=== PATIENT | female | born 1965 | race Caucasian/White ===

== ENCOUNTER 2016-12-08 16:53 | Emergency (ER) | payer OTHER ==
[2016-12-08 17:04] VITALS: RESP 20
--- NOTE | 2016-12-08 17:23 | ED ---
General Adult HPI - General Chief complaint: Abdominal Pain Stated complaint: Stomach swollen/kidney pain Time Seen by Provider: 12/08/16 17:07 Source: patient, RN notes reviewed Mode of arrival: ambulatory Limitations: no limitations - History of Present Illness Initial comments: This is a 51-year-old female who presents with abdominal distention 3 days. Patient states this has gradually gotten worse over the 3 days. Patient admits to some mild nausea but denies any vomiting. Patient states she has chronic diarrhea from IBS but this has not been worse. Patient states her last bowel movement was this morning and it was loose stool. Patient denies any hematochezia, hematuria, dysuria. Patient states she is having some bilateral lower back pain and thinks this is pain from her "kidneys". Patient states this has never happened to her before. Patient states she has a history of cholecystectomy and appendectomy. Patient states she's also had a partial hysterectomy but states her ovaries are still present. Patient states there is no pain unless she pushes on the abdomen. Patient denies any recent fever, chills, shortness breath, chest pain, numbness, tingling, hematuria, headache, or visual changes, or any other complaints. - Related Data Home Medications Medication Instructions Recorded Confirmed Albuterol Inhaler [Ventolin Hfa 2 puff INHALATION RT-BID PRN 12/08/16 12/08/16 Inhaler] HYDROcodone/APAP 10-325MG [[place] 0.5 tab PO BID PRN 12/08/16 12/08/16 10-325] Ibuprofen [Motrin] 800 mg PO TID PRN 12/08/16 12/08/16 Lisdexamfetamine Dimesylate 30 mg PO QAM 12/08/16 12/08/16 [Vyvanse] Previous Rx's Medication Instructions Recorded Dicyclomine [Bentyl] 20 mg PO QID 3 Days 12/08/16 Allergies Allergy/AdvReac Type Severity Reaction Status Date / Time cefaclor [From Ceclor] Allergy Unknown Verified 12/08/16 18:21 erythromycin base Allergy Unknown Verified 12/08/16 18:21 Penicillins Allergy Unknown Verified 12/08/16 18:21 sulfamethoxazole Allergy Unknown Verified 12/08/16 18:21 [From Bactrim] trimethoprim [From Bactrim] Allergy Unknown Verified 12/08/16 18:21 Review of Systems ROS Statement: Those systems with pertinent positive or pertinent negative responses have been documented in the HPI. ROS Other: All systems not noted in ROS Statement are negative. Past Medical History Past Medical History: Fibromyalgia Additional Past Medical History / Comment(s): herniated discs, migraines, goiter History of Any Multi-Drug Resistant Organisms: None Reported Past Psychological History: No Psychological Hx Reported Smoking Status: Current every day smoker Past Alcohol Use History: None Reported Past Drug Use History: None Reported General Exam - General Exam Comments Initial Comments: General: The patient is awake and alert, in no distress, and does not appear acutely ill. Eye: Pupils are equal, round and reactive to light, extra-ocular movements are intact. No nystagmus. There is normal conjunctiva bilaterally. No signs of icterus. Ears: TMs pink and pearly with intact cone of light bilaterally. Normal external ear canals Nose: Nasal turbinates pink and moist Mouth and throat: There are moist mucous membranes and no oral lesions. Neck: The neck is supple, there is no tenderness or JVD. Cardiovascular: There is a regular rate and rhythm. No murmur, rub or gallop is appreciated. Respiratory: Lungs are clear to auscultation, respirations are non-labored, breath sounds are equal. No wheezes, stridor, rales, or rhonchi. Gastrointestinal: Generalized tenderness to palpation of the abdomen, abdomen is mildly distended. Bilateral CVA tenderness with left worse than right. Abdomen is soft, abdomen without masses or organomegaly noted. There is no rebound or guarding present. Bowel sounds are unremarkable. Musculoskeletal: Normal ROM, no tenderness. Strength 5/5. Sensation intact. Radial pulses equal bilaterally 2+. Neurological: A&O x 3. CN II-XII intact, There are no obvious motor or sensory deficits. Coordination appears grossly intact. Speech is normal. Skin: Skin is warm and dry and no rashes or lesions are noted. Psychiatric: Cooperative, appropriate mood & affect, normal judgment. Limitations: no limitations Course Vital Signs 12/08/16 12/08/16 17:02 20:07 Temperature 97.8 F 98.1 F Pulse Rate 88 78 Respiratory 20 20 Rate Blood Pressure 176/84 140/85 O2 Sat by Pulse 98 97 Oximetry Medical Decision Making - Medical Decision Making This is a 50-year-old female who presents with bloating 3 days. On physical exam patient is well-appearing and afebrile. Generalized tenderness to palpation of the abdomen, abdomen is mildly distended. Bilateral CVA tenderness with left worse than right. Abdomen is soft, abdomen without masses or organomegaly noted. There is no rebound or guarding present. Bowel sounds are unremarkable. A KUB is done and reviewed showing: Nonacute abdomen. Report per Dr. Paul. Basic labs were drawn and reviewed. A UA was done. Urine culture is pending. Due to flank pain and hematuria found on UA a CT abdomen pelvis without contrast is done and reviewed showing: Gastric diverticulum. No evidence of renal stone or obstruction. No sign of acute abdomen and pelvis. Small left adrenal nodule of doubtful significance. Report by Dr. Paul. Discussed the results with patient. Discussed that patient should follow-up with her PCP in the next 1-2 days and have a repeat urinalysis done in 7-10 days to monitor for persistent hematuria. I discussed Bentyl along with Tylenol and Motrin for any pain bloating. I discussed return parameters.Discussed that patient should follow up with PCP in one to 2 days or return to the [facility] for any worsening symptoms or for any further concerns. Patient was receptive to this plan and patient will be discharged home. I discussed this case with attending physician Dr. Patton who agrees the plan as stated above. - Lab Data Result diagrams: 12/08/16 17:32 12/08/16 17:32 Lab Results 12/08/16 12/08/16 12/08/16 Range/Units 17:32 17:32 17:32 WBC 9.9 (3.8-10.6) k/uL RBC 4.61 (3.80-5.40) m/uL Hgb 14.0 (11.4-16.0) gm/dL Hct 42.1 (34.0-46.0) % MCV 91.3 (80.0-100.0) fL MCH 30.4 (25.0-35.0) pg MCHC 33.3 (31.0-37.0) g/dL RDW 14.5 (11.5-15.5) % Plt Count 216 (150-450) k/uL Neutrophils % 66 % Lymphocytes % 26 % Monocytes % 4 % Eosinophils % 2 % Basophils % 1 % Neutrophils # 6.5 (1.3-7.7) k/uL Lymphocytes # 2.6 (1.0-4.8) k/uL Monocytes # 0.4 (0-1.0) k/uL Eosinophils # 0.2 (0-0.7) k/uL Basophils # 0.1 (0-0.2) k/uL PT (9.0-12.0) sec INR (<1.1) APTT (22.0-30.0) sec Sodium 144 (137-145) mmol/L Potassium 3.4 L (3.5-5.1) mmol/L Chloride 105 (98-107) mmol/L Carbon Dioxide 27 (22-30) mmol/L Anion Gap 12 mmol/L BUN 12 (7-17) mg/dL Creatinine 0.77 (0.52-1.04) mg/dL Est GFR (MDRD) Af Amer >60 (>60 ml/min/1.73 sqM) Est GFR (MDRD) Non-Af >60 (>60 ml/min/1.73 sqM) Glucose 117 H (74-99) mg/dL Plasma Lactic Acid Felix 1.5 (0.7-2.0) mmol/L Calcium 9.8 (8.4-10.2) mg/dL Total Bilirubin 0.8 (0.2-1.3) mg/dL AST 36 (14-36) U/L ALT 46 (9-52) U/L Alkaline Phosphatase 132 H (38-126) U/L Total Protein 7.7 (6.3-8.2) g/dL Albumin 4.3 (3.5-5.0) g/dL Amylase 65 (30-110) U/L Lipase 127 (23-300) U/L Urine Color Urine Appearance (Clear) Urine pH (5.0-8.0) Ur Specific [place] (1.001-1.035) Urine Protein (Negative) Urine Glucose (UA) (Negative) Urine Ketones (Negative) Urine Blood (Negative) Urine Nitrite (Negative) Urine Bilirubin (Negative) Urine Urobilinogen (<2.0) mg/dL Ur Leukocyte Esterase (Negative) Urine RBC (0-5) /hpf Urine WBC (0-5) /hpf Ur Squamous Epith Cells (0-4) /hpf Urine Mucus (None) /hpf 12/08/16 12/08/16 Range/Units 17:32 17:32 WBC (3.8-10.6) k/uL RBC (3.80-5.40) m/uL Hgb (11.4-16.0) gm/dL Hct (34.0-46.0) % MCV (80.0-100.0) fL MCH (25.0-35.0) pg MCHC (31.0-37.0) g/dL RDW (11.5-15.5) % Plt Count (150-450) k/uL Neutrophils % % Lymphocytes % % Monocytes % % Eosinophils % % Basophils % % Neutrophils # (1.3-7.7) k/uL Lymphocytes # (1.0-4.8) k/uL Monocytes # (0-1.0) k/uL Eosinophils # (0-0.7) k/uL Basophils # (0-0.2) k/uL PT 9.7 (9.0-12.0) sec INR 0.9 (<1.1) APTT 26.5 (22.0-30.0) sec Sodium (137-145) mmol/L Potassium (3.5-5.1) mmol/L Chloride (98-107) mmol/L Carbon Dioxide (22-30) mmol/L Anion Gap mmol/L BUN (7-17) mg/dL Creatinine (0.52-1.04) mg/dL Est GFR (MDRD) Af Amer (>60 ml/min/1.73 sqM) Est GFR (MDRD) Non-Af (>60 ml/min/1.73 sqM) Glucose (74-99) mg/dL Plasma Lactic Acid Felix (0.7-2.0) mmol/L Calcium (8.4-10.2) mg/dL Total Bilirubin (0.2-1.3) mg/dL AST (14-36) U/L ALT (9-52) U/L Alkaline Phosphatase (38-126) U/L Total Protein (6.3-8.2) g/dL Albumin (3.5-5.0) g/dL Amylase (30-110) U/L Lipase (23-300) U/L Urine Color Yellow Urine Appearance Cloudy H (Clear) Urine pH 6.0 (5.0-8.0) Ur Specific [place] 1.026 (1.001-1.035) Urine Protein Trace H (Negative) Urine Glucose (UA) Negative (Negative) Urine Ketones Trace H (Negative) Urine Blood Negative (Negative) Urine Nitrite Negative (Negative) Urine Bilirubin Negative (Negative) Urine Urobilinogen 3.0 (<2.0) mg/dL Ur Leukocyte Esterase Trace H (Negative) Urine RBC 110 H (0-5) /hpf Urine WBC 3 (0-5) /hpf Ur Squamous Epith Cells 1 (0-4) /hpf Urine Mucus Many H (None) /hpf Disposition Clinical Impression: Hematuria Disposition: HOME SELF-CARE Condition: Good Instructions: Hematuria (ED) Additional Instructions: Please follow-up with her primary care provider in the next 1-2 days and have a repeat urinalysis done in 7-10 days to monitor for persistent hematuria. Please take Tylenol or Motrin for any pain. Please use Bentyl as prescribed.Please use medication as discussed. Please follow-up with family doctor in the next 2 days of symptoms have not improved. Please return to emergency room if the symptoms increase or worsen or for any other concerns. Prescriptions: Dicyclomine [Bentyl] 20 mg PO QID 3 Days Referrals: Donis Nuñez MD [Primary Care Provider] - 1-2 days Time of Disposition: 19:49
[2016-12-08 17:45] LABS: Basophils # (A) 0.1 k/uL (0-0.2); Basophils % (A) 1 %; CH 30.8; CHCM 33.9; Eosinophils # (A) 0.2 k/uL (0-0.7); Eosinophils % (A) 2 %; HCT 42.1 % (34.0-46.0); HDW 2.66; Luc # (Auto) 0.18; Luc % (Auto) 2; Lymphocytes # (A) 2.6 k/uL (1.0-4.8); Lymphocytes % (A) 26 %; MCH 30.4 pg (25.0-35.0); MCHC 33.3 g/dL (31.0-37.0); MCV 91.3 fL (80.0-100.0); Mean Platelet Volume 7.7; Monocytes # (A) 0.4 k/uL (0-1.0); Monocytes % (A) 4 %; Neutrophils # (A) 6.5 k/uL (1.3-7.7); Neutrophils % (A) 66 %; RBC 4.61 m/uL (3.80-5.40); RDW 14.5 % (11.5-15.5); WBC 9.9 k/uL (3.8-10.6); WBC (Perox) 9.87
--- NOTE | 2016-12-08 17:51 | XR ---
EXAMINATION TYPE: XR KUB DATE OF EXAM: 12/08/2016 5:42 PM COMPARISON: NONE HISTORY: Abdominal distention. TECHNIQUE: 2 views FINDINGS: Bowel gas pattern is normal. There is no sign of intestinal obstruction or pneumoperitoneum . Fecal pattern is normal. There are clips from cholecystectomy. There is no sign of a mass. IMPRESSION: Nonacute abdomen.
[2016-12-08 17:52] LABS: Appearance,Urine Cloudy (Clear); Bilirubin,Urine Negative (Negative); Glucose,Urine (UA) Negative (Negative); Ketones,Urine Trace (Negative); Leukocyte Esterase,Urine Trace (Negative); Mucus,Urine Many /hpf; Nitrite,Urine Negative (Negative); Particle Count 10840; Protein,Urine Trace (Negative); RBC,Urine 110 /hpf (0-5); Specific Gravity,Urine 1.026 (1.001-1.035); Squamous Epithelial Cell,Urine 1 /hpf (0-4); UA Billing (MACRO vs. MICRO) MICRO; WBC,Urine 3 /hpf (0-5)
[2016-12-08 17:57] LABS: ALT 46 U/L (9-52); AST 36 U/L (14-36); Alkaline Phosphatase 132 U/L (38-126); Amylase 65 U/L (30-110); Anion Gap 12 mmol/L; Blood Urea Nitrogen 12 mg/dL (7-17); Calcium 9.8 mg/dL (8.4-10.2); Carbon Dioxide 27 mmol/L (22-30); Chloride 105 mmol/L (98-107); Glucose 117 mg/dL (74-99); Non-African American GFR(MDRD) >60 (>60 ml/min/1.73 sqM); Potassium 3.4 mmol/L (3.5-5.1); Sodium 144 mmol/L (137-145); Total Bilirubin 0.8 mg/dL (0.2-1.3); Total Protein 7.7 g/dL (6.3-8.2)
[2016-12-08 17:58] LABS: INR 0.9 (<1.1); Partial Thromboplastin Time 26.5 sec (22.0-30.0); Prothrombin Time 9.7 sec (9.0-12.0)
[2016-12-08] MEDS ORDERED: SODIUM CHLORIDE 0.9% 500 ML IV ONE (18:03)
--- NOTE | 2016-12-08 19:09 | CT ---
EXAMINATION TYPE: CT abdomen pelvis wo con DATE OF EXAM: 12/08/2016 6:41 PM COMPARISON: NONE HISTORY: Abdominal bloating and swelling and left flank pain. CT DLP: 1129.00 mGycm Automated exposure control for dose reduction was used. TECHNIQUE: Helical acquisition of images was performed from the lung bases through the pelvis. FINDINGS: Lung bases are clear. There is no pleural effusion. Liver spleen pancreas appear normal. There are clips from cholecystectomy. Bile ducts are not dilated . There is a 1.5 cm left adrenal mass. This has relatively low density and is of doubtful significanc e. The kidneys have normal size and contour. There is no hydronephrosis. There is no retroperitoneal adenopathy. There is no ascites. Bladder is almost empty. There is no sign of a pelvic mass. There is no free fluid in the pelvis. There is no intestinal wall thickening. There are no dilated loops. The re is atherosclerotic calcification in the abdominal aorta. There is a 2 cm diverticulum on the poste rior gastric fundus. There is no sign of a hernia. I see no bony destructive process. IMPRESSION: GASTRIC DIVERTICULUM. NO EVIDENCE OF RENAL STONE OR OBSTRUCTION. NO SIGN OF ACUTE ABDOMEN AND PELVIS. Small left adrenal nodule of doubtful significance.
[2016-12-08 20:08] VITALS: BP 140/85; PULSE 78; TEMP 98.1
== END 2016-12-08 20:07 | disposition home or self-care (01) ==
LOC: EC 16:53
DX: R31.9 Hematuria, unspecified (principal); R11.0 Nausea; R19.7 Diarrhea, unspecified; R10.9 Unspecified abdominal pain; M54.5 Low back pain; F17.200 Nicotine dependence, unspecified, uncomplicated; Z79.899 Other long term (current) drug therapy; Z88.0 Allergy status to penicillin; Z88.1 Allergy status to other antibiotic agents; Z88.2 Allergy status to sulfonamides; Z88.8 Allergy status to other drugs, medicaments and biological substances
CPT/HCPCS: 36415; 74000; 74176; 80053; 81001; 82150; 83605; 83690; 85025; 85610; 85730; 87040; 87086; 99284

== ENCOUNTER 2018-04-21 14:19 | Emergency (ER) | payer OTHER ==
[2018-04-21 14:23] VITALS: BP 184/87; PULSE 83; RESP 18; TEMP 98.2
[2018-04-21] MEDS ORDERED: HYDROcodone/APAP 5-325MG 1 EACH TAB PO STA (14:29)
--- NOTE | 2018-04-21 14:42 | ED ---
General Adult HPI - General Chief complaint: ENT Stated complaint: Ear pain Source: patient Mode of arrival: ambulatory Limitations: no limitations - History of Present Illness Initial comments: Dictation was produced using [employer] dictation software. please excuse any grammatical, word or spelling errors. Chief Complaint: 52-year-old female with chief complaint of right ear pain. History of Present Illness: Patient states she's had these symptoms for approximately 5 days per she was trying to get in appointment with her primary care physician who is allegedly on vacation. Patient states that she has severe pain with movement of the external ear. Denies any constitutional symptoms. No runny nose, sore throat. She is not a swimmer. No history of diabetes The ROS documented in this emergency department record has been reviewed and confirmed by me. Those systems with pertinent positive or negative responses have been documented in the HPI. All other systems are other negative and/or noncontributory. - Related Data Home Medications Medication Instructions Recorded Confirmed Albuterol Inhaler [Ventolin Hfa 2 puff INHALATION RT-BID PRN 12/08/16 12/08/16 Inhaler] HYDROcodone/APAP 10-325MG [[place] 0.5 tab PO BID PRN 12/08/16 12/08/16 10-325] Ibuprofen [Motrin] 800 mg PO TID PRN 12/08/16 12/08/16 Lisdexamfetamine Dimesylate 30 mg PO QAM 12/08/16 12/08/16 [Vyvanse] Previous Rx's Medication Instructions Recorded Dicyclomine [Bentyl] 20 mg PO QID 3 Days tablet 12/08/16 Ciprofloxacin HCl/Dexameth 5 drops BOTH EARS Q12HR #1 bottle 04/21/18 [Ciprodex Otic Suspension] HYDROcodone/APAP 5-325MG [[place] 5] 1 each PO Q6HR PRN #10 tab 04/21/18 Allergies Allergy/AdvReac Type Severity Reaction Status Date / Time amoxicillin Allergy Rash/Hives Verified 04/21/18 14:21 cefaclor [From Ceclor] Allergy Unknown Verified 04/21/18 14:21 erythromycin base Allergy Unknown Verified 04/21/18 14:21 Penicillins Allergy Unknown Verified 04/21/18 14:21 sulfamethoxazole Allergy Unknown Verified 04/21/18 14:21 [From Bactrim] trimethoprim [From Bactrim] Allergy Unknown Verified 04/21/18 14:21 Review of Systems ROS Statement: Those systems with pertinent positive or pertinent negative responses have been documented in the HPI. ROS Other: All systems not noted in ROS Statement are negative. Past Medical History Past Medical History: Fibromyalgia Additional Past Medical History / Comment(s): herniated discs, migraines, goiter History of Any Multi-Drug Resistant Organisms: None Reported Past Surgical History: Appendectomy, Section, Cholecystectomy, Hysterectomy Past Psychological History: No Psychological Hx Reported Smoking Status: Current every day smoker Past Alcohol Use History: None Reported Past Drug Use History: None Reported General Exam - General Exam Comments Initial Comments: PHYSICAL EXAM: General Impression: Alert and oriented x3, acute distress secondary to pain HEENT: Occluded TM on the right, severe pain with manipulation of the tragus. Left TM is unremarkable, no mastoid tenderness Cardiovascular: Heart regular rate and rhythm, S1&S2 audible, no murmurs, rubs or gallops Chest: Lungs clear to auscultation bilaterally, no rhonchi, no wheeze, no rales Abdomen: Bowel sounds present, abdomen soft, non-tender, non-distended, no organomegaly Musculoskeletal: Pulses present and equal in all extremities, no peripheral edema Motor: Power 5/5 bilaterally, no focal deficits noted Neurological: CN II-XII grossly intact, no focal motor or sensory deficits noted Skin: Intact with no visualized rashes Psych: Normal affect and mood Limitations: no limitations Course Vital Signs 04/21/18 14:21 Temperature 98.2 F Pulse Rate 83 Respiratory 18 Rate Blood Pressure 184/87 O2 Sat by Pulse 99 Oximetry Medical Decision Making - Medical Decision Making ED course: 52-year-old female with severe otitis externa. Vital signs upon arrival are within acceptable limits. Patient given 2 tabs of [place] here. Patient prescription for analgesics. She is also given antibiotic eardrops. She is given urgent referral to ENT. Wick was placed in the right ear canal Disposition Clinical Impression: Otitis externa Disposition: HOME SELF-CARE Condition: Good Instructions: Otitis Externa (ED) Prescriptions: Ciprofloxacin HCl/Dexameth [Ciprodex Otic Suspension] 5 drops BOTH EARS Q12HR # 1 bottle HYDROcodone/APAP 5-325MG [[place] 5] 1 each PO Q6HR PRN #10 tab PRN Reason: Pain Is patient prescribed a controlled substance at d/c from ED?: Yes If prescribed controlled substance>3 days was MAPS reviewed?: Prescribed <3 Days Referrals: Donis Nuñez MD [Primary Care Provider] - 1-2 days Sha Hopper DO [Doctor of Osteopathic Medicine] - 1-2 days Time of Disposition: 14:41
== END 2018-04-21 14:45 | disposition home or self-care (01) ==
LOC: EC 14:19
DX: H60.91 Unspecified otitis externa, right ear (principal); F17.200 Nicotine dependence, unspecified, uncomplicated; Z79.899 Other long term (current) drug therapy; Z88.0 Allergy status to penicillin; Z88.1 Allergy status to other antibiotic agents; Z88.2 Allergy status to sulfonamides
CPT/HCPCS: 99282